=== PATIENT | female | born 2000 | race Caucasian/White ===

== ENCOUNTER 2018-09-19 13:03 | Emergency (ER) | payer OTHER ==
[2018-09-19] MEDS ORDERED: Fluorescein Opthalmic Strip ONE (13:11)
[2018-09-19] MEDS ORDERED: Proparacaine 0.5% Opth 15 ML BOT ONE (13:12)
== END 2018-09-19 13:52 | disposition home or self-care (01) ==
LOC: SCSER 13:03
DX: T15.12XA Foreign body in conjunctival sac, left eye, initial encounter (principal); F41.9 Anxiety disorder, unspecified; F32.9 Major depressive disorder, single episode, unspecified; W45.8XXA Other foreign body or object entering through skin, initial encounter